=== PATIENT | male | born 1975 | race Caucasian/White ===

== ENCOUNTER 2018-07-28 23:52 | Emergency (ER) | payer SELFPAY ==
[2018-07-28 23:56] VITALS: TEMP 98.7
[2018-07-29] MEDS ORDERED: COZAAR100 MG PO (00:30)
[2018-07-29] MEDS ORDERED: NORVASC 5MG5 MG/TAB PO (00:31)
[2018-07-29] MEDS ORDERED: COZAAR 50MG50 MG/TAB PO (00:31)
[2018-07-29 01:05] LABS: BASO % 0.3 % (0.0-2.0); EOS # 0.3 (0.0-0.7); GRAN # 4.1 (1.4-6.5); GRAN % 42.3 % (42.2-75.2); HEMATOCRIT 44.7 % (42.0-52.0); HEMOGLOBIN 15.2 g/dl (13.5-18.0); LYMPH # 4.6 (1.2-3.4); LYMPH % 47.4 % (20.0-51.0); MEAN CELL VOLUME 80 fl (80.0-100.0); MEAN CORPUSCULAR HEMOGLOBIN 27 pg (27.0-31.0); MEAN CORPUSCULAR HGB CONC 34 g/dl (33.0-37.0); MEAN PLATELET VOLUME 8.8 fl (7.4-10.4); MONO # 0.7 (0.1-0.6); MONO % 6.8 % (1.7-9.3); PLATELET COUNT 323 K/mm3 (130-400); REDCELL DISTRIBUTION WIDTH-CV 14.1 % (11.5-14.5)
[2018-07-29 01:19] LABS: ALBUMIN 4.2 gm/dL (3.5-5.0); BILIRUBIN,TOTAL 0.6 mg/dL (0.0-1.0); CALCIUM 8.8 mg/dL (8.4-10.2); CREATININE, serum 0.83 mg/dL (0.66-1.25); POTASSIUM 3.8 mmol/L (3.4-5.0); TOTAL PROTEIN 8.2 gm/dL (6.4-8.2)
[2018-07-29] MEDS ORDERED: PROAIR HFA0.09 MG/AC IH (01:19)
[2018-07-29] MEDS ORDERED: PREDNISONE10 MG PO (01:19)
[2018-07-29 01:35] VITALS: BP 137/85; PULSE 93
== END 2018-07-29 01:35 | disposition home or self-care (01) ==
LOC: COL.ER 23:52
PROVIDERS: Physician Assistant
DX: J45.909 Unspecified asthma, uncomplicated (principal)